=== PATIENT | female | born 1960 | race Caucasian/White ===

== ENCOUNTER 2019-05-04 11:01 | Day surgery (SDC) | payer BC ==
--- NOTE | 2019-05-04 09:01 | HP ---
DATE OF SURGERY: 05/04/2019 HISTORY OF PRESENT ILLNESS: The patient is a 58 year-old female for a while increasing in size, increasing itch, increasing aches and pains, had question of ruptured cyst and/or nodule in the left axilla. She desires definitive excision. PAST MEDICAL HISTORY: Migraines. 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 Achilles tendon surgery in the past. MEDICATIONS: Imitrex. ALLERGIES: NKDA. FAMILY HISTORY: Heart disease, colon cancer. SOCIAL HISTORY: No smoking or alcohol abuse. REVIEW OF SYSTEMS: Fourteen systems reviewed per admission assessment. No chest pain or palpitations other systems negative or noncontributory as above and per preadmission questionnaire. The patient did report having a recent mammogram that was normal, according to the patient. PHYSICAL EXAMINATION: GENERAL: No acute distress. HEENT: Sclerae nonicteric. NECK: No JVD. CHEST: Equal excursion, nonlabored breathing. CVS: Regular rate and rhythm. ABDOMEN: Soft. No peritoneal signs. EXTREMITIES: Left axilla indurated area. Question of ruptured cyst site. NEURO: Alert, moving extremities symmetrically. No gross motor deficits noted. RECTAL: Deferred timed to endoscopy exam. IMPRESSION: Left axillary nodule or ruptured cyst site. I feel the patient will benefit from excisional biopsy. Risks and benefits explained in detail including but not limited to bleeding or infection, risk of wound complications or dehiscence possibly requiring packing, general risk of aches, pains, burning or numbness possible retirement or chronic in nature. Risk of wound dehiscence possibly requiring packing at a later date, risk of hematoma or seroma or lymphocele formation. She understands if this is a ruptured cyst site what we excise will not recur but she could get similar cyst or nodule adjacent to or elsewhere on her body. General risk of anesthesia, deep venous thrombosis, pulmonary embolism, pneumonia, but not limited to, will proceed with excisional biopsy of left axillary nodule or ruptured cyst site as an outpatient.
[~2019-05-04 11:01] MED LIST: Lactated Ringers 0 ML IV ONE; Lactated Ringers 1,000 ML IV ONE; Lactated Ringers 1,000 ML IV SCH; XYLOCAINE 1% HCL 20 ML MDV ONE
[2019-05-04] MEDS ORDERED: Versed 2 MG/2 ML Injection IV ONE (11:02)
[2019-05-04] MEDS ORDERED: DIPRIVAN 200 MG/20 ML IV ONE (11:02)
[2019-05-04] MEDS ORDERED: SUBLIMAZE 100 MCG/2 ML IV ONE (11:02)
[2019-05-04] MEDS ORDERED: Sensorcaine 0.25% 10 ML ONE (13:12)
[2019-05-04] MEDS ORDERED: KEFZOL 1 GM ONE (13:18)
[2019-05-04 14:41] VITALS: O2SAT 99
--- NOTE | 2019-05-04 15:01 | OP ---
SURGERY DATE/TIME: 05/04/2019 1306 PREOPERATIVE DIAGNOSIS: History of persistent ruptured cyst site or nodule lower left axilla. POSTOPERATIVE DIAGNOSIS: History of persistent ruptured cyst site or nodule lower left axilla. PROCEDURE: Excisional biopsy ruptured cyst or nodule lower left axilla (approximately 2 cm including margins). SURGEON: Dr. Suman Pacheco. ANESTHESIA: General. ESTIMATED BLOOD LOSS: Minimal. INDICATIONS: As noted above. Risks and benefits explained in detail and not limited to and consent obtained. DESCRIPTION OF PROCEDURE AND FINDINGS: The patient is taken to the operating room. General anesthesia introduced. After official time out and no disagreement with planned procedure, a transverse incision made marking out to normal appearing skin on either side. This did appear to be large underneath and required a little bit longer incision and dissection carried down underneath the normal appearing subcutaneous tissue beneath and passed off. It measured about 2 cm with margins in vivo. It was passed off for pathology. Hemostasis controlled with some pinpoint cautery. Good hemostasis noted. The subcu closed with 3-0 Vicryl. Skin closed with 4-0 Vicryl. Steri-Strips and sterile dressing applied. 0.25% Marcaine local had been injected along the area. The patient tolerated the procedure well. There were no immediate complications. Findings discussed with family out in the waiting area.
[2019-05-04 15:02] VITALS: BP 123/94; PULSE 73
== END 2019-05-04 15:15 | disposition home or self-care (01) ==
LOC: SDC 11:01
PROVIDERS: ATTEND Surgery
DX: D23.5 Other benign neoplasm of skin of trunk (principal)
CPT/HCPCS: J0690; J2250; J2704; J3010

== ENCOUNTER 2021-08-06 13:53 | Emergency (ER) | payer BC ==
[2021-08-06] MEDS ORDERED: BENADRYL 25 MG CAPSULE PO ONE (14:43)
[2021-08-06] MEDS ORDERED: Kenalog-40 IM ONE (14:43)
[2021-08-06] MEDS ORDERED: BENADRYL 25 MG CAPSULE ONE (14:51)
--- NOTE | 2021-08-06 14:55 | ERPHSYRPT ---
- History of Present Illness Time Seen by Provider: 08/06/21 14:11 Patient Subjective Stated Complaint: pt here for rash to face and chest since saturday after mowing, co itching Triage Nursing Assessment: pt has red rash to rash and chest, no sob Physician History: 60 years old female presented in the ER with chief complaint of rash on the lower neck and some on the hands and face which started 2 days ago after she mowed and pulled some weed. Reports burning and itching, has been applying topical steroids with no significant relief. Does have some burning sensation around eyes but not inside eye yet. No difficulty breathing but does have some soreness in the throat. Timing/Duration: day(s) (2), constant, gradual onset, worse Quality: burning, itchy Severity: moderate Location: face, neck Possible Causes: exposure to allergen Modifying Factors: Improves With: topical steriods Associated Symptoms: blisters, sore throat, No difficulty breathing, No nasal congestion, No paresthesia Allergies/Adverse Reactions: adhesive tape Adverse Reaction (Verified 08/06/21 14:14) Home Medications: Sumatriptan Succinate [Imitrex] 100 mg PO DAILY PRN PRN 04/20/19 [History] Erenumab-Aooe [Aimovig Autoinjector] 1 ea UD 08/06/21 [History] Immunizations Up to Date: Yes Travel Risk - International Travel Have you traveled outside of the country in past 3 weeks: No - Coronavirus Screening Are you exhibiting any of the following symptoms?: No Close contact with a COVID-19 positive Pt in past 14-21 Days: No - Vaccine Status Have you recieved a Covid-19 vaccination: Yes Juvenile Justice Specialist: Moderna - Vaccination Dates Date of 2cond Vaccination (if applicable): ? - Review of Systems Constitutional: No Symptoms Eyes: No Symptoms Ears, Nose, & Throat: Throat Swelling, No Nose Congestion, No Nose Discharge, No Mouth Swelling, No Painful Swallowing Respiratory: No Symptoms Cardiac: No Symptoms Abdominal/Gastrointestinal: No Symptoms Musculoskeletal: No Symptoms Skin: Pruritis, Rash Neurological: No Symptoms Psychological: No Symptoms Endocrine: No Symptoms, Excessive Sweating - Past Medical History Pertinent Past Medical History: Yes Neurological History: Migraines ENT History: No Pertinent History Cardiac History: Other Respiratory History: No Pertinent History Endocrine Medical History: No Pertinent History Musculoskeletal History: Osteoarthritis GI Medical History: No Pertinent History History: No Pertinent History Psycho-Social History: No Pertinent History Female Reproductive Disorders: No Pertinent History Other Medical History: aortic stenosis, nonhodgkins , lymphoma just finished radiation 2020 - Past Surgical History Past Surgical History: Yes Neuro Surgical History: No Pertinent History Cardiac: No Pertinent History Respiratory: No Pertinent History Gastrointestinal: No Pertinent History Genitourinary: No Pertinent History Musculoskeletal: No Pertinent History Female Surgical History: No Pertinent History Other Surgical History: Port placement and port removal , node removal, melanoma on back removed as well as nodes, melanoma on nose. - Social History Smoking Status: Never smoker Exposure to second hand smoke: No Drug Use: none Patient Lives Alone: No - Female History Hx Last Menstrual Period: post Hx Now: No - Nursing Vital Signs Nursing Vital Signs: Initial Vital Signs Temperature 96.3 F 08/06/21 14:09 Pulse Rate 80 08/06/21 14:09 Respiratory Rate 18 08/06/21 14:09 Blood Pressure 128/58 08/06/21 14:09 O2 Sat by Pulse Oximetry 98 08/06/21 14:09 Pain Scale Pain Intensity 0 - Physical Exam General Appearance: no apparent distress, alert Eye Exam: PERRL/EOMI, eyes nml inspection Ears, Nose, Throat Exam: normal ENT inspection, TMs normal, pharynx normal Neck Exam: normal inspection, non-tender, supple, full range of motion, other (Small vesicular rash in groups the both lower neck involving 2 cm area on each side with few on the right face.) Respiratory Exam: normal breath sounds, lungs clear Cardiovascular Exam: regular rate/rhythm, normal heart sounds Extremity Exam: normal inspection, normal range of motion Neurologic Exam: alert, oriented x 3, cooperative, electrician assistant II-XII nml as tested Skin Exam: normal color, rash SpO2 Interpretation: normal SpO2: 98 O2 Delivery: Room Air Ordered Tests: Medication Summary Discontinued Medications Generic Name Dose Route Start Last Admin Trade Name Freq PRN Reason Stop Dose Admin Diphenhydramine HCl 50 mg 08/06/21 14:43 Benadryl 25 Mg Capsule PO 08/06/21 14:44 STAT ONE Triamcinolone Acetonide 60 mg 08/06/21 14:43 Kenalog-40 IM 08/06/21 14:44 1XONLY ONE - Progress Progress: unchanged Progress Note: 08/06/21 14:53 She is given Benadryl and Kenalog, will continue with oral steroid and Benadryl to go home. Recommend avoiding allergen exposure again. Counseled pt/family regarding: diagnosis, need for follow-up - Departure Departure Disposition: Home Clinical Impression: Plant allergic contact dermatitis Condition: Stable Critical Care Time: No Referrals: CELESTINO VILLAVICENCIO [Primary Care Provider] - Follow Up with PCP/3 days Instructions: Poison Ruthie, Poison [place], Poison [place] (DC) Additional Instructions: Take Benadryl as needed. Apply calamine lotion 2-3 times a day. Follow-up with primary care for reevaluation. Return to ER for worsening of the rash or if develop difficulty breathing/swallowing/choking sensation etc. Prescriptions: Diphenhydramine HCl 25 mg [Benadryl 25 mg Capsule] 25 mg PO Q4H PRN PRN #20 cap PRN Reason: Allergies Prednisone 20 mg [Deltasone 20 mg] 60 mg PO DAILY 5 Days #15 tablet
[2021-08-06 15:08] VITALS: BP 136/81
[2021-08-06 15:36] VITALS: PULSE 78; O2SAT 97
== END 2021-08-06 15:36 | disposition home or self-care (01) ==
LOC: ED 13:53
DX: L23.7 Allergic contact dermatitis due to plants, except food (principal)
CPT/HCPCS: 96372; 99283; J3301; A9270-GY

== ENCOUNTER 2021-09-25 05:55 | Day surgery (SDC) | payer BC ==
[2021-09-25] MEDS ORDERED: DIPRIVAN 200 MG/20 ML IV ONE (06:56)
[2021-09-25] MEDS ORDERED: Lactated Ringers 1,000 ML IV SCH (07:00)
--- NOTE | 2021-09-25 13:16 | OP ---
SURGERY DATE/TIME: 09/25/2021 0700 PREOPERATIVE DIAGNOSIS: Screening exam. POSTOPERATIVE DIAGNOSIS: Normal colon. PROCEDURE: Colonoscopy. SURGEON: Dr. Worthy. ANESTHESIA: MAC. Medications given by anesthesia department. HISTORY: The patient is a 61-year-old white female presenting now for screening colonoscopy. She was appraised of the risks of the procedure including the risk of perforation, phlebitis, untoward reaction to medication, bleeding and missed lesions. The patient verbalized her understanding and desired to have the procedure performed. DESCRIPTION OF PROCEDURE: The patient was given the medications by the anesthesia department. She had continuous pulse oximetry, ECG monitoring, intermittent blood pressure monitoring and tidal CO2 monitoring during the examination. She was placed in the left lateral decubitus position. A digital rectal examination was performed and revealed normal anal sphincter tone and no masses. The flexible Olympus pediatric colonoscope was used to intubate the rectum. A view of the colon was developed sequentially to the cecum. Upon insertion and withdrawal, including a retroflex view in the rectum, no mucosal lesions were encountered. The scope was removed from the patient who tolerated the procedure well and was sent back to OP recovery in good condition. The prep was noted to be fair to good.
== END 2021-09-25 08:15 | disposition home or self-care (01) ==
LOC: SDC 05:55
PROVIDERS: ATTEND Family Medicine
DX: Z12.11 Encounter for screening for malignant neoplasm of colon (principal)
CPT/HCPCS: J2704